=== PATIENT | male | born 1975 | race Two or more races ===

== ENCOUNTER 2018-01-18 16:39 | Inpatient (IN) | payer OTHER ==
[~2018-01-18] VITALS: Ht 172.7 cm; Wt 82.6 kg
[2018-01-18 18:45] LABS: BASOPHIL (%) 0.2 % (0-1); EOSINOPHIL (%) 0.2 % (0-5); HEMATOCRIT 38.9 % (38.0-50.0); HEMOGLOBIN 12.8 G/DL (12.5-16.6); IMMATURE GRANULOCYTE (%) 0.5 % (0.0-0.7); LYMPHOCYTE (%) 9.3 % (15-42); LYMPHOCYTE COUNT 1.5 K/uL (1.0-2.8); MCH 27.6 PG (29.0-34.0); MCHC 32.9 G/DL (30.0-36.0); MONOCYTE (%) 8.3 % (3-12); MONOCYTE COUNT 1.3 K/uL (0-0.8); NEUTROPHIL (%) 81.5 % (45-76); NEUTROPHIL COUNT 13.2 K/uL (1.8-6.4); PLATELET COUNT 346 K/uL (156-360); RBC DIS.WIDTH-CV 12.7 % (11.8-14.6); RBC DIS.WIDTH-SD 38.6 % (39-53); RED BLOOD COUNT 4.63 M/uL (4.00-5.50); WHITE BLOOD COUNT 16.2 K/uL (4.1-10.2)
[2018-01-18 18:54] LABS: ALBUMIN 4.1 g/dL (3.2-4.8)
[2018-01-18 18:55] LABS: CHLORIDE 99 mEq/L (99-109); POTASSIUM 3.9 mEq/L (3.7-5.4); SODIUM 137 mEq/L (136-147)
[2018-01-18 18:57] LABS: GLUCOSE 100 mg/dL (70-99); TOTAL PROTEIN 8.3 g/dL (6.4-8.3)
[2018-01-18 18:59] LABS: TOTAL BILIRUBIN 0.7 mg/dL (0.0-1.0)
[2018-01-18 19:00] LABS: ALKALINE PHOSPHATASE 77 IU/L (3-129)
[2018-01-18 19:01] LABS: GFR ESTIMATE (CALCULATED) > 59 mL/min/ (58.99-99999)
[2018-01-18 19:02] LABS: AST (GOT) 17 IU/L (2-34); UREA NITROGEN (BUN) 9 mg/dL (9-23)
[2018-01-18 19:03] LABS: ALT (GPT) 39 IU/L (3-49)
[2018-01-18] MEDS ORDERED: ADVIL200 MG PO (20:45)
[2018-01-18] MEDS ORDERED: VITAMIN E100 UNIT PO (20:45)
[2018-01-18] MEDS ORDERED: VITAMIN D31000 UNIT PO (20:45)
[2018-01-18] MEDS ORDERED: EXCEDRIN EXTRA1 EACH PO (20:45)
[2018-01-18] MEDS ORDERED: ROBITUSSIN COU237 M2 PO (20:45)
[2018-01-18] MEDS ORDERED: FISH OIL 1,0001 EAC7 PO (20:46)
[2018-01-18 22:09] LABS: APPEARANCE CLEAR ((CLEAR)); BILIRUBIN NEGATIVE; BLOOD NEGATIVE; COLOR AMBER ((YELLOW)); GLUCOSE (STRIP) NEGATIVE; KETONES 20; LEUKOCYTES NEGATIVE; NITRITE NEGATIVE; PROTEIN (STRIP) 30; SPECIFIC GRAVITY 1.032 (1.000-1.030); UCUL ADDED? NO
[2018-01-18 22:35] VITALS: BP 108/66
[2018-01-19 04:42] VITALS: BP 106/66
[2018-01-19 06:14] LABS: CHLORIDE 101 MEQ/L (99-109); POTASSIUM 4.5 MEQ/L (3.7-5.4); SODIUM 138 MEQ/L (136-147)
[2018-01-19 06:20] LABS: BASOPHIL (%) 0.3 % (0-1); CREATININE 0.9 MG/DL (0.6-1.3); EOSINOPHIL (%) 0.6 % (0-5); EOSINOPHIL COUNT 0.1 K/uL (0-0.3); GFR ESTIMATE (CALCULATED) > 59 mL/min/ (58.99-99999); GLUCOSE 90 mg/dL (70-99); HEMATOCRIT 37.9 % (38.0-50.0); HEMOGLOBIN 12.1 G/DL (12.5-16.6); IMMATURE GRANULOCYTE (%) 0.5 % (0.0-0.7); LYMPHOCYTE (%) 13.9 % (15-42); LYMPHOCYTE COUNT 1.8 K/uL (1.0-2.8); MCH 27.6 PG (29.0-34.0); MCHC 31.9 G/DL (30.0-36.0); MCV 86.5 FL (86-99); MONOCYTE (%) 10.8 % (3-12); MONOCYTE COUNT 1.4 K/uL (0-0.8); NEUTROPHIL (%) 73.9 % (45-76); NEUTROPHIL COUNT 9.5 K/uL (1.8-6.4); RBC DIS.WIDTH-CV 12.8 % (11.8-14.6); RBC DIS.WIDTH-SD 40.1 % (39-53); RED BLOOD COUNT 4.38 M/uL (4.00-5.50); UREA NITROGEN (BUN) 9 mg/dL (9-23); WHITE BLOOD COUNT 12.8 K/uL (4.1-10.2)
[2018-01-19 07:59] LABS: PLATELET CLUMPS PRESENT - PLATELET COUNT APPEARS ADEQUATE; PLATELET COUNT UNABLE TO REPORT K/uL (156-360)
[2018-01-19 08:00] VITALS: BP 116/74
[2018-01-19 09:37] LABS: TREPONEMA ANTIBODY NEGATIVE (NEGATIVE)
[2018-01-19 09:37] LABS: LYME DISEASE SEROLOGY SCREEN NEGATIVE (NEGATIVE)
[2018-01-19 10:22] LABS: HEPATITIS C ANTIBODY Nonreactive; HIV-1/2 AB/AG COMBO Nonreactive
[2018-01-19 11:34] VITALS: BP 103/66
[2018-01-19 16:23] VITALS: BP 115/76
[2018-01-19 21:27] VITALS: BP 134/78
[2018-01-20 00:20] VITALS: BP 95/57
[2018-01-20 04:11] VITALS: BP 107/70
[2018-01-20 07:44] VITALS: BP 110/70
[2018-01-20 10:37] LABS: BASOPHIL (%) 0.3 % (0-1); EOSINOPHIL (%) 1.2 % (0-5); EOSINOPHIL COUNT 0.1 K/uL (0-0.3); HEMATOCRIT 35.8 % (38.0-50.0); HEMOGLOBIN 11.5 G/DL (12.5-16.6); IMMATURE GRANULOCYTE (%) 0.6 % (0.0-0.7); LYMPHOCYTE (%) 10.4 % (15-42); LYMPHOCYTE COUNT 1.1 K/uL (1.0-2.8); MCH 27.6 PG (29.0-34.0); MCHC 32.1 G/DL (30.0-36.0); MCV 86.1 FL (86-99); MONOCYTE (%) 12.2 % (3-12); MONOCYTE COUNT 1.3 K/uL (0-0.8); NEUTROPHIL (%) 75.3 % (45-76); NEUTROPHIL COUNT 7.8 K/uL (1.8-6.4); PLATELET COUNT 240 K/uL (156-360); RBC DIS.WIDTH-CV 12.7 % (11.8-14.6); RBC DIS.WIDTH-SD 40.4 % (39-53); RED BLOOD COUNT 4.16 M/uL (4.00-5.50); WHITE BLOOD COUNT 10.4 K/uL (4.1-10.2)
[2018-01-20 12:10] VITALS: BP 111/83
[2018-01-20 15:46] VITALS: BP 107/79
[2018-01-20 20:25] VITALS: BP 114/64
[2018-01-21 00:09] VITALS: BP 110/63
[2018-01-21 04:02] VITALS: BP 119/66
[2018-01-21 08:15] VITALS: BP 119/71
[2018-01-21 20:26] VITALS: BP 137/81
[2018-01-22 00:15] VITALS: BP 109/75
[2018-01-22 13:45] VITALS: BP 125/74
[2018-01-22 17:12] VITALS: BP 138/83
[2018-01-22 19:53] VITALS: BP 119/65
[2018-01-22 23:41] VITALS: BP 109/67
[2018-01-23 03:49] VITALS: BP 120/77
[2018-01-23 08:26] LABS: HEMATOCRIT 36.2 % (38.0-50.0); HEMOGLOBIN 11.5 G/DL (12.5-16.6); MCH 27.4 PG (29.0-34.0); MCHC 31.8 G/DL (30.0-36.0); MCV 86.4 FL (86-99); RBC DIS.WIDTH-CV 12.7 % (11.8-14.6); RBC DIS.WIDTH-SD 39.9 % (39-53); RED BLOOD COUNT 4.19 M/uL (4.00-5.50); WHITE BLOOD COUNT 7.6 K/uL (4.1-10.2)
[2018-01-23 08:42] VITALS: BP 114/66
[2018-01-23 08:43] LABS: PLATELET COUNT 342 K/uL (156-360)
[2018-01-23 08:52] LABS: CHLORIDE 101 MEQ/L (99-109); GFR ESTIMATE (CALCULATED) > 59 mL/min/ (58.99-99999); GLUCOSE 106 mg/dL (70-99); POTASSIUM 4.5 MEQ/L (3.7-5.4); SODIUM 139 MEQ/L (136-147); UREA NITROGEN (BUN) 8 mg/dL (9-23)
[2018-01-23] MEDS ORDERED: BACTRIM,SEPT1 TABLET PO (11:15)
[2018-01-23] MEDS ORDERED: ENDOCET 5-3251 EACH PO (11:15)
[2018-01-23 12:11] VITALS: BP 116/67
[2018-01-23 15:41] VITALS: BP 90/65
[2018-01-24 00:38] VITALS: BP 118/66
[2018-01-24 04:13] VITALS: BP 128/65
[2018-01-24 07:27] VITALS: BP 109/64
== END 2018-01-24 16:46 | disposition home health service (06) | DRG 728 ==
LOC: EME 16:39 → ENRESERV 20:58 → 4SOUTH 21:33 → EME 21:33 → EDOF 21:33 → 4SOUTH 22:26
PROVIDERS: Hospitalist; Internal Medicine; Physician Assistant
DX: N49.2 Inflammatory disorders of scrotum (principal); L02.215 Cutaneous abscess of perineum; L02.31 Cutaneous abscess of buttock; B95.62 Methicillin resistant Staphylococcus aureus infection as the cause of diseases classified elsewhere; R05 Cough; R09.82 Postnasal drip; R19.7 Diarrhea, unspecified
CPT/HCPCS: 71046; 76870; 80048; 80053; 80202; 81003; 83605; 85025; 85027; 86618; 86780; 86803; 87040; 87070; 87075; 87077; 87147; 87186; 87205; 87389; 99281; 99285; G0378; J0131; J0690; J1170; J1650; J2250; J2543; J3010; J3370; J7030